=== PATIENT | male | born 2005 | race African-American/Black ===

== ENCOUNTER 2024-09-23 19:04 | Emergency (ER) | payer SELFPAY ==
[~2024-09-23] VITALS: Ht 188 cm; Wt 63.0 kg
[2024-09-23 19:06] VITALS: O2SAT 100
[2024-09-23 19:09] VITALS: BP 119/68; PULSE 78; RESP 18; TEMP 98; O2SAT 100
== END 2024-09-23 21:12 | disposition left against medical advice (07) ==
LOC: ER 20:05
DX: M54.9 Dorsalgia, unspecified (principal); Z53.21 Procedure and treatment not carried out due to patient leaving prior to being seen by health care provider